=== PATIENT | male | born 1945 | race Caucasian/White ===

== ENCOUNTER 2021-12-30 04:32 | Inpatient (IN) | payer MEDICARE ==
[2021-12-30 05:10] LABS: #Eosinphils 0.1 10x3/uL (0.0-0.5); #Monocytes 1.9 10x3/uL (0.0-1.1); #Neutrophils 10.2 10x3/uL (1.5-8.4); %Basophils 0.2 % (0.0-2.0); %Eosinophils 0.4 % (0.0-6.0); %Lymphocytes 9.4 % (18.0-47.0); %Monocytes 14.3 % (0.0-10.0); %Neutrophils 75.1 % (40.0-75.0); Hemoglobin 13.1 g/dL (13.5-17.5); Mean Corpuscular HGB CONC 32.3 g/dL (32.0-36.0); Mean Corpuscular Hemoglobin 29.4 pg (27.0-33.0); Mean Corpuscular Volume 91.2 fl (81.2-95.1); Mean Platelet Volume 9.3 fl (7.4-10.4); Platelet Count 246 10x3/uL (150-450); RBC Distribution Width 16.2 % (11.5-14.5); Red Blood Cell (RBC) Count 4.45 10x6/uL (4.32-5.72); White Blood Cell (WBC) Count 13.6 10x3/uL (3.5-10.5)
[2021-12-30 05:24] LABS: ALT (SGPT) 21 U/L (8-55); AST (SGOT) 19 U/L (5-34); Albumin 4.1 g/dL (3.4-4.8); Alkaline Phosphatase 79 U/L (40-110); Anion Gap 17 mmol/L (10-20); BUN (Urea Nitrogen) 25 mg/dL (8.4-25.7); Bilirubin, Total 1.1 mg/dL (0.2-1.2); Calc. Creatinine Clearance 0 mL/min (70-130); Calcium 9.3 mg/dL (7.8-10.44); Carbon Dioxide 23 mmol/L (23-31); Chloride 103 mmol/L (98-107); Globulin 3.5 g/dL (2.4-3.5); Glucose 126 mg/dL (83-110); Lipase 6 U/L (8-78); Potassium 4.3 mmol/L (3.5-5.1); Protein, Total 7.6 g/dL (5.8-8.1); Sodium 139 mmol/L (136-145)
[2021-12-30] MEDS ORDERED: Fentanyl 100 MCG/2 ML VIAL ONE (05:25)
[2021-12-30] MEDS ORDERED: Zolpidem Tartrate 5 MG TAB PO PRN (06:13)
[2021-12-30] MEDS ORDERED: Calcium Carbonate 500 MG ChewTAB PO PRN (06:13)
[2021-12-30] MEDS ORDERED: Senokot S 8.6-50 MG TAB PO PRN (06:13)
[2021-12-30] MEDS ORDERED: Guaifenesin DM 100-10/5 ML UDCUP PO PRN (06:13)
[2021-12-30] MEDS ORDERED: HYDROcodone/Acetaminophen 5/325 mg Tablet PO PRN (06:13)
[2021-12-30] MEDS ORDERED: Dextrose 50% Abboject 50 ML SYRINGE SLOW IVP PRN (06:13)
[2021-12-30] MEDS ORDERED: Dextrose 5% in Water 1,000 ML IV PRN (06:13)
[2021-12-30] MEDS ORDERED: Acetaminophen 325 MG TAB PO PRN (06:13)
[2021-12-30] MEDS ORDERED: Ondansetron PF 4 MG/2 ML Vial IVP PRN (06:13)
[2021-12-30] MEDS ORDERED: Morphine 4 MG/ML VIAL SLOW IVP PRN (06:15)
[2021-12-30] MEDS ORDERED: Enoxaparin Sodium 100 MG/ML SYRINGE ONE (06:17)
[2021-12-30 06:28] LABS: PTT 25.9 sec (22.0-33.0); Prothrombin Time 10.8 sec (9.5-12.1)
[2021-12-30 06:40] LABS: Bilirubin Neg (Negative); Blood, Urine Negative (Negative); Clarity Clear (Clear); Glucose, Urine (Dipstick) >=1000 mg/dL (Negative); Ketone, Urine Negative (Negative); Leukocyte Negative (Negative); Nitrite Negative (Negative); Protein, Urine (Dipstick) Negative (Neg-Trace); Specific Gravity, Urine 1.015 (1.002-1.036)
[2021-12-30 08:10] VITALS: BMI 35.7
[2021-12-30 08:25] LABS: SARS-CoV-2 NAA Rapid Test DETECTED (NotDetected)
[2021-12-30] MEDS ORDERED: Lisinopril 10 MG TAB ONE (08:59)
[2021-12-30] MEDS ORDERED: Aspirin Chewable 81 MG TAB ONE (08:59)
[2021-12-30] MEDS ORDERED: Metoprolol Tartrate 25 MG TAB ONE (08:59)
[2021-12-30] MEDS ORDERED: Famotidine 20 MG TAB ONE (09:01)
[2021-12-30] MEDS: Aspirin 81 mg Enteric Coated Tablet PO SCH (09:14)
[2021-12-30] MEDS: Famotidine 20 MG TAB PO SCH ×2 (09:14→20:48)
[2021-12-30] MEDS: Lantus 1000 UNITS/10 ML VIAL SC SCH (09:14)
[2021-12-30] MEDS: Lisinopril 10 MG TAB PO SCH (09:15)
[2021-12-30] MEDS: Metoprolol Tartrate 25 MG TAB PO SCH ×2 (09:16→20:48)
[2021-12-30] MEDS ORDERED: FLU VACC QS2021-22(65YR UP)/PF 240 MCG/0.7 ML SYRINGE IM ONE (16:15)
[2021-12-30] MEDS: HumaLOG 300 UNITS/3 ML VIAL SC PRN (17:39)
[2021-12-30] MEDS: Enoxaparin Sodium 120 MG/0.8 ML SYRINGE SC SCH (20:48)
[2021-12-30] MEDS ORDERED: Atorvastatin Calcium 10 MG TAB PO SCH (21:00)
[2021-12-31 05:25] LABS: #Eosinphils 0.1 10x3/uL (0.0-0.5); #Monocytes 1.6 10x3/uL (0.0-1.1); %Basophils 0.2 % (0.0-2.0); %Eosinophils 0.4 % (0.0-6.0); %Lymphocytes 10.6 % (18.0-47.0); %Monocytes 13.6 % (0.0-10.0); %Neutrophils 74.7 % (40.0-75.0); Hemoglobin 12.4 g/dL (13.5-17.5); Mean Corpuscular HGB CONC 32.7 g/dL (32.0-36.0); Mean Corpuscular Hemoglobin 29.1 pg (27.0-33.0); Mean Platelet Volume 9.2 fl (7.4-10.4); Platelet Count 229 10x3/uL (150-450); RBC Distribution Width 16.6 % (11.5-14.5); Red Blood Cell (RBC) Count 4.26 10x6/uL (4.32-5.72)
[2021-12-31 05:40] LABS: Anion Gap 15 mmol/L (10-20); BUN (Urea Nitrogen) 31 mg/dL (8.4-25.7); Calc. Creatinine Clearance 77 mL/min (70-130); Calcium 9.6 mg/dL (7.8-10.44); Carbon Dioxide 26 mmol/L (23-31); Chloride 102 mmol/L (98-107); Glucose 135 mg/dL (83-110); Potassium 4.4 mmol/L (3.5-5.1); Sodium 139 mmol/L (136-145)
[2021-12-31] MEDS: Aspirin 81 mg Enteric Coated Tablet PO SCH (09:32)
[2021-12-31] MEDS: Famotidine 20 MG TAB PO SCH ×2 (09:32→20:01)
[2021-12-31] MEDS: Lisinopril 10 MG TAB PO SCH (09:32)
[2021-12-31] MEDS: Lantus 1000 UNITS/10 ML VIAL SC SCH (09:32)
[2021-12-31] MEDS: Enoxaparin Sodium 120 MG/0.8 ML SYRINGE SC SCH (09:32)
[2021-12-31] MEDS: Metoprolol Tartrate 25 MG TAB PO SCH (09:33)
[2021-12-31] MEDS: HumaLOG 300 UNITS/3 ML VIAL SC PRN ×2 (12:55→17:53)
[2021-12-31] MEDS ORDERED: Lidocaine 5% Patch TD SCH (13:30)
[2021-12-31] MEDS ORDERED: HYDROcodone/Acetaminophen 5/325 mg Tablet PO PRN (13:30)
[2021-12-31] MEDS: Carvedilol 3.125 MG TAB PO SCH (20:01)
[2021-12-31] MEDS: metFORMIN 500 MG TAB PO SCH (20:02)
[2021-12-31] MEDS: Apixaban 5 MG TAB PO SCH (20:02)
[2021-12-31] MEDS ORDERED: Atorvastatin Calcium 40 MG TAB PO SCH (21:00)
[2022-01-01] MEDS ORDERED: Transdermal Patch Removal TOP SCH (01:45)
[2022-01-01] MEDS: HumaLOG 300 UNITS/3 ML VIAL SC PRN (06:18)
[2022-01-01 06:35] LABS: Anion Gap 13 mmol/L (10-20); BUN (Urea Nitrogen) 39 mg/dL (8.4-25.7); Calc. Creatinine Clearance 73 mL/min (70-130); Calcium 9.2 mg/dL (7.8-10.44); Carbon Dioxide 27 mmol/L (23-31); Chloride 102 mmol/L (98-107); Glucose 177 mg/dL (83-110); Potassium 4.3 mmol/L (3.5-5.1); Sodium 138 mmol/L (136-145)
[2022-01-01 06:51] LABS: #Eosinphils 0.2 10x3/uL (0.0-0.5); #Monocytes 1.3 10x3/uL (0.0-1.1); #Neutrophils 6.1 10x3/uL (1.5-8.4); %Basophils 0.3 % (0.0-2.0); %Eosinophils 1.9 % (0.0-6.0); %Lymphocytes 13.5 % (18.0-47.0); %Neutrophils 68.6 % (40.0-75.0); Mean Corpuscular HGB CONC 31.7 g/dL (32.0-36.0); Mean Corpuscular Volume 91.6 fl (81.2-95.1); Mean Platelet Volume 9.9 fl (7.4-10.4); Platelet Count 229 10x3/uL (150-450); RBC Distribution Width 16.3 % (11.5-14.5); Red Blood Cell (RBC) Count 3.79 10x6/uL (4.32-5.72); White Blood Cell (WBC) Count 8.9 10x3/uL (3.5-10.5)
[2022-01-01] MEDS: Aspirin 81 mg Enteric Coated Tablet PO SCH (08:45)
[2022-01-01] MEDS: Apixaban 5 MG TAB PO SCH (08:45)
[2022-01-01] MEDS: Lantus 1000 UNITS/10 ML VIAL SC SCH (08:46)
[2022-01-01] MEDS: Famotidine 20 MG TAB PO SCH (08:46)
[2022-01-01] MEDS: Carvedilol 3.125 MG TAB PO SCH (08:46)
[2022-01-01] MEDS: metFORMIN 500 MG TAB PO SCH (08:47)
[2022-01-01] MEDS ORDERED: Empagliflozin 10 MG TAB PO SCH (09:00)
[2022-01-01] MEDS ORDERED: Lisinopril 10 MG TAB PO SCH (09:00)
[2022-01-01] MEDS ORDERED: Clopidogrel Bisulfate 75 MG TAB PO SCH (09:00)
[2022-01-01 13:56] VITALS: BP 142/68; TEMP 98.1
== END 2022-01-01 17:11 | disposition home or self-care (01) | DRG 177 ==
LOC: CSHERS 04:32 → CSHERHOLD 07:39 → CSHTELE 15:02
PROVIDERS: ADMIT Hospitalist; ATTEND Hospitalist
PROC: 8E0ZXY6 Isolation (ICD-10-PCS; principal; 2021-12-30)
DX: U07.1 COVID-19 (principal); I26.99 Other pulmonary embolism without acute cor pulmonale; J12.82 Pneumonia due to coronavirus disease 2019; J96.01 Acute respiratory failure with hypoxia; R65.10 Systemic inflammatory response syndrome (SIRS) of non-infectious origin without acute organ dysfunction; I25.10 Atherosclerotic heart disease of native coronary artery without angina pectoris; E78.5 Hyperlipidemia, unspecified; E66.9 Obesity, unspecified; E11.65 Type 2 diabetes mellitus with hyperglycemia; E11.22 Type 2 diabetes mellitus with diabetic chronic kidney disease; I12.9 Hypertensive chronic kidney disease with stage 1 through stage 4 chronic kidney disease, or unspecified chronic kidney disease; N18.2 Chronic kidney disease, stage 2 (mild); D72.829 Elevated white blood cell count, unspecified; Z95.5 Presence of coronary angioplasty implant and graft; Z68.35 Body mass index [BMI] 35.0-35.9, adult
CPT/HCPCS: 36415; 36416; 71045; 71275; 74174; 80048; 80053; 81003; 83690; 83880; 84484; 85025; 85610; 85730; 90471; 90662; 90732; 93005; 93306; 94760; 96372; 96374; G0008; G0009; J1650; J1815; J3010; U0002